=== PATIENT | female | born 1980 | race Caucasian/White ===

== ENCOUNTER 2021-12-24 17:29 | Inpatient (IN) ==
[2021-12-24] MEDS ORDERED: GLUCAGON 1 MG VIAL IM PRN (21:19)
[2021-12-24] MEDS ORDERED: ACETAMINOPHEN 325 MG TABLET PO PRN (21:19)
[2021-12-24] MEDS ORDERED: DEXTROSE 10% 250 ML BAG IV PRN (21:19)
[2021-12-24 21:37] LABS: Basophils % 0.2 % (0.0-0.8); Eosinophils # 0.1 10*3/uL (0.0-0.87); Eosinophils % 0.6 % (0.00-10.9); Hematocrit 40.8 VOL% (35.7-47.0); Hemoglobin 13.6 GM/DL (12.0-16.0); Immature Granulocytes % 0.2 %; Immature Granulocytes Absolute 0.02 #; Lymphocytes # 1.2 10*3/uL (1.4-4.0); Lymphocytes % 14.6 % (21.3-54.2); Mean Corpuscular HGB Conc 33.3 GM/DL (32-36); Monocytes # 0.4 10*3/uL (0.11-0.8); Monocytes % 5.1 % (1.7-12.7); Neutrophils % 79.3 % (38.7-73.9); Platelet Count 245 T/CUMM (130-400); Red Blood Count 4.25 MC/CUMM (3.8-5.5); Red Cell Distribution Width 12.5 % (9.3-17.3)
[2021-12-24 21:48] LABS: PT Patient Result 11.2 SECS (10.5-12.0); Partial Thromboplastin Time 29.3 SECS (23.8-32.1)
[2021-12-24] MEDS ORDERED: NICOTINE 21 MG/24 HR PATCH TRANSDERM PRN (21:58)
[2021-12-24 21:59] LABS: Albumin 3.6 G/DL (3.4-5.0); Calcium 8.8 MG/DL (8.5-10.1); Osmolality,Calculated 275.4 MOS/KG (273-304); Potassium 3.5 MMOL/L (3.5-5.1); Total Protein 7.7 G/DL (6.4-8.2)
[2021-12-24 22:03] LABS: Risk Ratio 3.67
[2021-12-24] MEDS: SODIUM CHLORIDE 0.9% 1,000 ML IV SCH (23:30)
[2021-12-24] MEDS: PIPERACILLIN/TAZOBACTAM 3,375 MG in SODIUM CHLORIDE 0.9% 100 ML IV SCH (23:30)
[2021-12-24] MEDS: HYDROmorphone 1 MG/1 ML SYRINGE IV PRN (23:39)
[2021-12-25] MEDS: HYDROmorphone 1 MG/1 ML SYRINGE IV PRN (03:55)
[2021-12-25 03:59] LABS: Hepatitis B Core IgM Quant 0.07 Index; Hepatitis B Surface Ag Quant < 0.10 Index; Hepatitis B Surface Ag Result Non-Reactive (NonReactive); Hepatitis C Virus Ab Quant 0.14 Index; Hepatitis C Virus Ab Result Non-Reactive (NonReactive)
[2021-12-25] MEDS: PIPERACILLIN/TAZOBACTAM 3,375 MG in SODIUM CHLORIDE 0.9% 100 ML IV SCH ×3 (06:13→22:18)
[2021-12-25] MEDS: ONDANSETRON 4 MG/2 ML VIAL IV PRN (08:45)
[2021-12-25] MEDS: PANTOPRAZOLE 40 MG TABLET PO SCH (08:49)
[2021-12-25] MEDS: SODIUM CHLORIDE 0.9% 1,000 ML IV SCH (09:14)
[2021-12-25] MEDS: DEXT 5% NACL 0.45% KCL 20 MEQ 20 MEQ/1,000 ML BAG IV SCH ×2 (10:20→22:18)
[2021-12-26 05:05] LABS: Basophils % 0.5 % (0.0-0.8); Eosinophils # 0.1 10*3/uL (0.0-0.87); Eosinophils % 2.8 % (0.00-10.9); Hematocrit 31.5 VOL% (35.7-47.0); Hemoglobin 10.3 GM/DL (12.0-16.0); Immature Granulocytes % 0.2 %; Immature Granulocytes Absolute 0.01 #; Lymphocytes # 1.3 10*3/uL (1.4-4.0); Lymphocytes % 30.9 % (21.3-54.2); Mean Corpuscular HGB Conc 32.7 GM/DL (32-36); Mean Corpuscular Volume 96.9 FL (87-102); Mean Platelet Volume 11.1 FL (9.6-12.0); Monocytes # 0.4 10*3/uL (0.11-0.8); Monocytes % 8.7 % (1.7-12.7); Neutrophils % 56.9 % (38.7-73.9); Platelet Count 209 T/CUMM (130-400); Red Blood Count 3.25 MC/CUMM (3.8-5.5); Red Cell Distribution Width 12.5 % (9.3-17.3); White Blood Count 4.2 T/CUMM (4-12)
[2021-12-26 05:27] LABS: Albumin 2.7 G/DL (3.4-5.0); Bilirubin,Total 0.9 MG/DL (0.20-1.00); Osmolality,Calculated 279.3 MOS/KG (273-304); Total Protein 5.4 G/DL (6.4-8.2)
[2021-12-26] MEDS: DEXT 5% NACL 0.45% KCL 20 MEQ 20 MEQ/1,000 ML BAG IV SCH ×2 (06:05→16:30)
[2021-12-26] MEDS: PIPERACILLIN/TAZOBACTAM 3,375 MG in SODIUM CHLORIDE 0.9% 100 ML IV SCH ×3 (06:05→21:34)
[2021-12-26] MEDS: PANTOPRAZOLE 40 MG TABLET PO SCH (08:59)
[2021-12-26] MEDS: DEXTROSE 5% NACL 0.9% 1,000 ML IV SCH ×2 (11:14→21:36)
[2021-12-26] MEDS ORDERED: INDOCYANINE GREEN 25 MG VIAL IV ONE (15:00)
[2021-12-26] MEDS: ONDANSETRON 4 MG/2 ML VIAL IV PRN (17:26)
[2021-12-27] MEDS: DEXTROSE 5% NACL 0.9% 1,000 ML IV SCH ×2 (00:48→14:19)
[2021-12-27] MEDS ORDERED: TISSUE ADHESIVE 1 EACH APPLICATOR TOP ONE (06:21)
[2021-12-27] MEDS: PIPERACILLIN/TAZOBACTAM 3,375 MG in SODIUM CHLORIDE 0.9% 100 ML IV SCH ×2 (06:29→18:43)
[2021-12-27 06:30] LABS: Eosinophils # 0.1 10*3/uL (0.0-0.87); Eosinophils % 1.9 % (0.00-10.9); Hemoglobin 9.9 GM/DL (12.0-16.0); Immature Granulocytes % 0.2 %; Immature Granulocytes Absolute 0.01 #; Lymphocytes # 1.6 10*3/uL (1.4-4.0); Lymphocytes % 37.4 % (21.3-54.2); Mean Corpuscular Volume 96.5 FL (87-102); Mean Platelet Volume 10.8 FL (9.6-12.0); Monocytes # 0.3 10*3/uL (0.11-0.8); Monocytes % 6.4 % (1.7-12.7); Neutrophils % 53.1 % (38.7-73.9); Platelet Count 183 T/CUMM (130-400); Red Blood Count 3.11 MC/CUMM (3.8-5.5); Red Cell Distribution Width 12.6 % (9.3-17.3); White Blood Count 4.2 T/CUMM (4-12)
[2021-12-27] MEDS ORDERED: SUCCINYLCHOLINE 200 MG/10 ML VIAL ONE (06:32)
[2021-12-27] MEDS ORDERED: LIDOCAINE 2% 5 ML VIAL ONE (06:32)
[2021-12-27] MEDS ORDERED: propofoL 200 MG/20 ML VIAL IV ONE (06:32)
[2021-12-27] MEDS ORDERED: ONDANSETRON 4 MG/2 ML VIAL ONE (06:32)
[2021-12-27] MEDS ORDERED: ROCURONIUM 50 MG/5 ML VIAL IV ONE (06:32)
[2021-12-27] MEDS ORDERED: fentaNYL 100 MCG/2 ML VIAL ONE (06:32)
[2021-12-27] MEDS ORDERED: DEXAMETHASONE 4 MG/1 ML VIAL ONE (06:32)
[2021-12-27] MEDS ORDERED: INDOCYANINE GREEN 25 MG VIAL IV ONE (07:00)
[2021-12-27] MEDS ORDERED: BUPIVACAINE MPF 0.25% 30 ML VIAL ONE (07:11)
[2021-12-27] MEDS ORDERED: LIDOCAINE 1%/EPI INJ 20 ML VIAL ONE (07:11)
[2021-12-27 07:24] LABS: Albumin 2.6 G/DL (3.4-5.0); Bilirubin,Total 0.6 MG/DL (0.20-1.00); Osmolality,Calculated 281.1 MOS/KG (273-304); Potassium 3.5 MMOL/L (3.5-5.1); Total Protein 5.7 G/DL (6.4-8.2)
[2021-12-27] MEDS ORDERED: LACTATED RINGERS 1,000 ML IV SCH (07:30)
[2021-12-27] MEDS ORDERED: NEOSTIGMINE 10 MG/10 ML VIAL ONE (08:21)
[2021-12-27] MEDS ORDERED: GLYCOPYRROLATE 0.4 MG/2 ML VIAL ONE (08:21)
[2021-12-27] MEDS ORDERED: HYDROmorphone 1 MG/1 ML SYRINGE ONE (08:22)
[2021-12-27] MEDS ORDERED: SEVOFLURANE 1 UNIT/15 MINUTE INH ONE (08:46)
[2021-12-27] MEDS: HYDROmorphone 1 MG/1 ML SYRINGE IV PRN ×3 (09:00→22:04)
[2021-12-27] MEDS ORDERED: ONDANSETRON 4 MG/2 ML VIAL IV PRN (09:06)
[2021-12-27] MEDS ORDERED: MEPERIDINE 25 MG/1 ML VIAL ONE (09:31)
[2021-12-27] MEDS ORDERED: MEPERIDINE 50 MG/1 ML VIAL IV PRN (09:46)
[2021-12-27] MEDS: PANTOPRAZOLE 40 MG TABLET PO SCH (10:29)
[2021-12-27] MEDS: ONDANSETRON 4 MG/2 ML VIAL IV PRN (12:39)
[2021-12-27] MEDS ORDERED: BISACODYL 5 MG TABLET PO PRN (12:49)
[2021-12-27] MEDS ORDERED: ALBUTEROL/IPRATROPIUM 3 ML NEB RESP TX PRN (12:49)
[2021-12-28] MEDS: PIPERACILLIN/TAZOBACTAM 3,375 MG in SODIUM CHLORIDE 0.9% 100 ML IV SCH ×3 (00:57→18:35)
[2021-12-28 05:31] LABS: Basophils % 0.6 % (0.0-0.8); Eosinophils % 0.4 % (0.00-10.9); Hematocrit 32.7 VOL% (35.7-47.0); Hemoglobin 10.8 GM/DL (12.0-16.0); Immature Granulocytes % 0.2 %; Immature Granulocytes Absolute 0.01 #; Lymphocytes # 1.1 10*3/uL (1.4-4.0); Lymphocytes % 21.6 % (21.3-54.2); Mean Corpuscular Volume 96.2 FL (87-102); Mean Platelet Volume 11.9 FL (9.6-12.0); Monocytes # 0.4 10*3/uL (0.11-0.8); Monocytes % 7.8 % (1.7-12.7); Neutrophils % 69.4 % (38.7-73.9); Platelet Count 217 T/CUMM (130-400); Red Cell Distribution Width 12.1 % (9.3-17.3); White Blood Count 5.1 T/CUMM (4-12)
[2021-12-28 05:31] LABS: PT Patient Result 11.1 SECS (10.5-12.0)
[2021-12-28 05:59] LABS: Albumin 2.5 G/DL (3.4-5.0); Bilirubin,Total 0.9 MG/DL (0.20-1.00); Calcium 8.5 MG/DL (8.5-10.1); Osmolality,Calculated 274.4 MOS/KG (273-304); Potassium 3.8 MMOL/L (3.5-5.1); Total Protein 5.8 G/DL (6.4-8.2)
[2021-12-28] MEDS: LACTATED RINGERS 1,000 ML IV SCH ×6 (07:25→12:41)
[2021-12-28] MEDS ORDERED: INDOMETHACIN SUPP 50 MG SUPP RECTAL ONE (08:00)
[2021-12-28] MEDS: PANTOPRAZOLE 40 MG TABLET PO SCH (09:00)
[2021-12-28] MEDS: ESTRADIOL 2 MG TABLET PO SCH (09:00)
[2021-12-28] MEDS ORDERED: fentaNYL 100 MCG/2 ML VIAL ONE (10:04)
[2021-12-28] MEDS ORDERED: SUCCINYLCHOLINE 200 MG/10 ML VIAL ONE (10:07)
[2021-12-28] MEDS ORDERED: DEXAMETHASONE 4 MG/1 ML VIAL ONE (10:07)
[2021-12-28] MEDS ORDERED: propofoL 200 MG/20 ML VIAL IV ONE (10:07)
[2021-12-28] MEDS ORDERED: ROCURONIUM 50 MG/5 ML VIAL IV ONE (10:07)
[2021-12-28] MEDS ORDERED: LIDOCAINE 2% 5 ML VIAL ONE (10:07)
[2021-12-28] MEDS ORDERED: ONDANSETRON 4 MG/2 ML VIAL ONE (10:07)
[2021-12-28] MEDS: HYDROmorphone 1 MG/1 ML SYRINGE IV PRN ×2 (13:42→17:33)
[2021-12-29] MEDS: HYDROmorphone 1 MG/1 ML SYRINGE IV PRN ×2 (01:20→07:30)
[2021-12-29] MEDS: PIPERACILLIN/TAZOBACTAM 3,375 MG in SODIUM CHLORIDE 0.9% 100 ML IV SCH ×2 (01:20→09:40)
[2021-12-29] MEDS: LACTATED RINGERS 1,000 ML IV SCH ×3 (05:50→13:32)
[2021-12-29 06:56] LABS: Basophils % 0.6 % (0.0-0.8); Eosinophils % 0.2 % (0.00-10.9); Hematocrit 32.5 VOL% (35.7-47.0); Hemoglobin 10.8 GM/DL (12.0-16.0); Immature Granulocytes % 0.2 %; Immature Granulocytes Absolute 0.01 #; Lymphocytes # 1.3 10*3/uL (1.4-4.0); Lymphocytes % 26.8 % (21.3-54.2); Mean Corpuscular HGB Conc 33.2 GM/DL (32-36); Mean Corpuscular Volume 94.5 FL (87-102); Mean Platelet Volume 11.6 FL (9.6-12.0); Monocytes # 0.5 10*3/uL (0.11-0.8); Monocytes % 9.4 % (1.7-12.7); Neutrophils % 62.8 % (38.7-73.9); Platelet Count 224 T/CUMM (130-400); Red Blood Count 3.44 MC/CUMM (3.8-5.5); White Blood Count 4.8 T/CUMM (4-12)
[2021-12-29 07:22] LABS: Albumin 2.6 G/DL (3.4-5.0); Bilirubin,Total 0.5 MG/DL (0.20-1.00); Calcium 8.5 MG/DL (8.5-10.1); Potassium 3.7 MMOL/L (3.5-5.1); Total Protein 6.1 G/DL (6.4-8.2)
[2021-12-29] MEDS: ESTRADIOL 2 MG TABLET PO SCH ×2 (09:40→09:48)
[2021-12-29] MEDS: PANTOPRAZOLE 40 MG TABLET PO SCH (09:40)
[2021-12-29 12:40] VITALS: BP 118/70
== END 2021-12-29 14:08 | disposition home or self-care (01) | DRG 418 ==
LOC: SUATTDRO 20:20 → N.5E 20:20
PROVIDERS: ADMIT Internal Medicine; ATTEND Hospitalist